=== PATIENT | female | born 1995 | race Caucasian/White ===

== ENCOUNTER 2018-04-15 07:00 | Inpatient (IN) | payer MEDICAID ==
[~2018-04-15 07:00] MED LIST: cefOXitin 2 GM Vial ONE
[2018-04-15] MEDS ORDERED: Glycopyrrolate 0.2 MG/ML 5 ML MDV ONE (07:04)
[2018-04-15] MEDS ORDERED: Propofol 200 MG/20 ML SDV ONE (07:04)
[2018-04-15] MEDS ORDERED: Succinylcholine 200 MG/10 ML MDV ONE (07:04)
[2018-04-15] MEDS ORDERED: fentaNYL 250 MCG/5 ML SDV ONE ×2 (07:04→10:34)
[2018-04-15] MEDS ORDERED: Ondansetron 4 MG/2 ML SDV ONE (07:04)
[2018-04-15] MEDS ORDERED: Neostigmine Methylsulfate 1 MG/ML 5 ML Syringe ONE (07:04)
[2018-04-15] MEDS ORDERED: Rocuronium 50 MG/5 ML Vial ONE ×2 (07:04→10:47)
[2018-04-15] MEDS ORDERED: Dexamethasone 4 MG/ML SDV ONE (07:04)
[2018-04-15] MEDS ORDERED: Lactated Ringers 1,000 ML ONE (07:07)
[2018-04-15] MEDS ORDERED: Gabapentin 300 MG Cap PO ONE (07:45)
[2018-04-15] MEDS ORDERED: Celecoxib 200 MG Cap PO ONE (07:45)
[2018-04-15] MEDS ORDERED: Acetaminophen 500 MG Tab PO ONE (07:45)
[2018-04-15] MEDS ORDERED: Scopolamine 1.5 MG Transdermal Patch TRDERM SCH (07:45)
[2018-04-15 08:01] LABS: HEMOGLOBIN A1C 6.1 % (4.5-6.2)
[2018-04-15] MEDS ORDERED: Dextrose 5%-Lactated Ringers 1,000 ML IV SCH ×2 (08:15→15:45)
[2018-04-15] MEDS ORDERED: cefOXitin 2 GM in Sodium Chloride 0.9% 50 ML IV ONE (09:15)
[2018-04-15] MEDS ORDERED: Lidocaine 0.4%/D5W 2 GM/500 ML BAG IV SCH ×2 (09:30→15:45)
[2018-04-15] MEDS ORDERED: Ropivacaine 60 ML, Dexamethasone 8 MG, EPINEPHrine 0.4 MG, Sodium Chloride 0.9% 17.6 ML NERVRT SCH ×4 (09:30)
[2018-04-15] MEDS ORDERED: Lidocaine 2% 100 MG/5 ML Syringe IVPUSH SCH (09:30)
[2018-04-15] MEDS ORDERED: Ketamine 500 MG/5 ML MDV IV SCH (09:30)
[2018-04-15] MEDS ORDERED: Ketamine 50 MG in Sodium Chloride 0.9% 49.5 ML IV SCH (09:30)
[2018-04-15] MEDS ORDERED: Labetalol 20 MG/4 ML Syringe ONE (11:42)
[2018-04-15] MEDS ORDERED: hydrOXYzine HCl 100 MG/2 ML SDV IM ONE (12:43)
[2018-04-15] MEDS ORDERED: Insulin Lispro 100 Unit/ML 3 ML KwikPen SUBCUT PRN (15:44)
[2018-04-15] MEDS ORDERED: diphenhydrAMINE 50 MG/ML SDV IVPUSH PRN (15:44)
[2018-04-15] MEDS ORDERED: Metoclopramide 10 MG/2 ML SDV IVPUSH PRN (15:44)
[2018-04-15] MEDS ORDERED: 50% Dextrose in Water 50 ML Syringe IVPUSH PRN (15:44)
[2018-04-15] MEDS ORDERED: hydrOXYzine HCl 100 MG/2 ML SDV IM PRN (15:44)
[2018-04-15] MEDS ORDERED: Labetalol 20 MG/4 ML Syringe IVPUSH PRN (15:44)
[2018-04-15] MEDS ORDERED: Ondansetron 4 MG/2 ML SDV IVPUSH PRN (15:44)
[2018-04-15] MEDS ORDERED: Glucagon,Human Recombinant 1 MG Vial IM PRN (15:44)
[2018-04-15] MEDS ORDERED: HYDROmorphone 0.5 MG/0.5 ML Syringe IVPUSH PRN (15:50)
[2018-04-15] MEDS ORDERED: HYDROmorphone 1 MG/ML Syringe IV PRN (15:50)
[2018-04-15] MEDS ORDERED: Pantoprazole 40 MG Vial IVPUSH SCH (16:00)
[2018-04-15] MEDS ORDERED: MVI, Adult with Vitamin K 10 ML, Thiamine 100 MG, Chromium/Copper/Mang/Selen/Zn 1 ML in... IV SCH ×4 (16:00)
[2018-04-15] MEDS: cefOXitin 2 GM in Sodium Chloride 0.9% 50 ML IV SCH ×2 (16:23→21:04)
[2018-04-15] MEDS: Gabapentin 250 MG/5 ML Solution ML 470 ML Bottle PO SCH ×2 (16:23→21:03)
[2018-04-15] MEDS: Acetaminophen Soln 650 MG/20.3 ML UD Cup PO SCH ×2 (16:24→21:04)
[2018-04-15] MEDS: Heparin Sodium 5,000 Units/ML Vial SUBCUT SCH (17:54)
[2018-04-16] MEDS ORDERED: Iohexol 647 MG/ML 50 ML SDV PO SCH (02:30)
--- NOTE | 2018-04-16 02:58 | CRLCR ---
Indication: Becka-en-Y gastric bypass Technique: KUB 1 view Comparison: None Findings/Impression: : Oral contrast is seen within the gastric pouch and proximal duodenum on the initial film. On the 2nd film, there is a small amount of residual oral contrast in the region of the gastric pouch, adjacent to the left upper quadrant ESTRADA drain. It is difficult to determine if this represents small amount of extravasation versus small amount of retained oral contrast in the stomach. Consider CT for further evaluation if clinically indicated. IUD projects over the pelvis. Nonspecific bowel gas pattern. Dictated by Mindy Smith MD @ Apr 16 2018 2:54AM Signed by Dr. Mindy Smith @ Apr 16 2018 2:56AM
[2018-04-16] MEDS: Acetaminophen Soln 650 MG/20.3 ML UD Cup PO SCH ×4 (05:07→21:14)
[2018-04-16] MEDS: cefOXitin 2 GM in Sodium Chloride 0.9% 50 ML IV SCH ×3 (05:07→09:52)
[2018-04-16] MEDS: Heparin Sodium 5,000 Units/ML Vial SUBCUT SCH ×2 (05:07→17:52)
[2018-04-16] MEDS ORDERED: Ondansetron 4 MG Tab.DIS PO PRN (07:28)
[2018-04-16] MEDS ORDERED: Dextrose 5%-Lactated Ringers 1,000 ML IV SCH (07:30)
[2018-04-16] MEDS: Magnesium Sulfate/Water 2 GM in Premix Bag 1 BAG IV SCH ×3 (08:46→20:57)
[2018-04-16] MEDS: Gabapentin 250 MG/5 ML Solution ML 470 ML Bottle PO SCH ×3 (08:49→21:14)
[2018-04-16] MEDS: SCOPOLAMINE PATCH CHECK TOP SCH (08:50)
[2018-04-16] MEDS: Celecoxib 200 MG Cap PO SCH (08:52)
[2018-04-16] MEDS ORDERED: MVI, Adult with Vitamin K 10 ML, Thiamine 100 MG, Chromium/Copper/Mang/Selen/Zn 1 ML in... IV SCH ×4 (16:00)
[2018-04-16] MEDS ORDERED: Pantoprazole 40 MG Delayed-Release Granules 1 Packet PO SCH (16:00)
[2018-04-17] MEDS ORDERED: Iohexol 647 MG/ML 50 ML SDV PO STA (03:45)
[2018-04-17] MEDS ORDERED: Iopamidol 612 MG/ML 150 ML Bottle IV STA (03:46)
[2018-04-17] MEDS: Acetaminophen Soln 650 MG/20.3 ML UD Cup PO SCH (04:50)
--- NOTE | 2018-04-17 05:01 | CRLCT ---
INDICATION: Abnormal KUB after Becka-en-Y TECHNIQUE: CT abdomen and pelvis without contrast. COMPARISON: KUB April 16, 2018 FINDINGS: Lower chest: Trace left pleural effusion. Liver: Unremarkable. Spleen: The spleen measures 14.1 cm in length. Pancreas: Unremarkable. Gallbladder and bile ducts: Unremarkable. Adrenal glands: Unremarkable. Kidneys: Unremarkable. No kidney or ureteral stones and no hydronephrosis. GI tract: Status post gastric bypass procedure. A ESTRADA drain enters the left abdomen with the tip along the lateral aspect of the superior spleen. Small amount of postoperative fat stranding around the stomach. Small amount of oral contrast within the gastric pouch. There is also oral contrast material within the duodenum and colon to the level of the splenic flexure. No evidence for oral contrast extravasation. Vascular structures: Unremarkable. Lymph nodes: Unremarkable. Miscellaneous: Small amount of postoperative pneumoperitoneum. Pelvic Organs: IUD within the uterus. Bones: Unremarkable for age. IMPRESSION: Status post gastric bypass procedure. No evidence for oral contrast extravasation. Trace left pleural effusion. Mild splenomegaly. IUD within the uterus. Please note that all CT scans at this facility use dose modulation, iterative reconstruction, and/or weight-based dosing when appropriate to reduce radiation dose to as low as reasonably achievable. Dictated by Mindy Smith MD @ Apr 17 2018 4:55AM Signed by Dr. Mindy Smith @ Apr 17 2018 5:01AM
[2018-04-17] MEDS: Heparin Sodium 5,000 Units/ML Vial SUBCUT SCH (05:11)
--- NOTE | 2018-04-17 07:45 | DISCH ---
ADMISSION DIAGNOSIS: Morbid obesity, BMI 46. DISCHARGE DIAGNOSES: Laparoscopic Becka-en-Y gastric bypass surgery, liver biopsy, repair of paraesophageal diaphragmatic hernia, and partial gastrectomy for morbid obesity, hepatomegaly, diaphragmatic hernia, focal area of devascularization of the stomach, and SP formation of gastric pouch. Date of surgery: 04/16/2018. Surgeon: Aroldo Ledesma MD. HISTORY: Imelda Olson is a 22-year-old female with longstanding history of morbid obesity and increasing comorbidities. After preoperative evaluation and discussion of possible risks and possible complications, she wished to proceed with surgical procedure. HOSPITAL COURSE: Imelda had her surgery on 04/15/2018. She had no operative complications. On postoperative day #1, she had an upper GI and it showed possible extravasation of contrast. The patient exhibited no signs or symptoms of a possible leak. A CT scan was obtained on 04/17/2018 was completely normal. On postoperative day #1, lidocaine was discontinued after 24 hours. She was started on a step-2 gastric bypass diet without cereal. IV was decreased to 100 mL per hour. Pain was controlled. Activity was good. She received dietary instruction. On postoperative day #2, she was able to be discharged to home. She did have a bowel movement. Oral intake was 1000. Urine output was 2600. ESTRADA drain put out 90 before it was discontinued and she received a vitamin B12 1000 mcg IM injection. OBJECTIVE: GENERAL: Imelda Olson is a 22-year-old female. VITAL SIGNS: Height is 5 feet 5.75 inches. Weight is 280 pounds. TPR 98.2, 99, 16, blood pressure 149/88, it had been running 123 to 135 over 74 to 83. HEENT: Negative. NECK: Supple. HEART: Regular rate and rhythm. LUNGS: Clear. ABDOMEN: 4 x 4 over ESTRADA drain site. Sutures intact. Abdominal binder is on. EXTREMITIES: Without peripheral edema. DISPOSITION: Discharged to home. CONDITION: Stable and improving. FOLLOWUP APPOINTMENT: Rhonda Verdugo PA-C, on 04/26/2018 at 10:15 a.m. NEW PRESCRIPTIONS: Zofran ODT 4 mg q.4 h. p.r.n. nausea, #30; Tylenol 650 mg oral q.6 h. for pain; Celebrex, she has at home 200 mg, she is to take one daily for 14 days starting tomorrow; she has Mirena IUD, this is to remain in for 18 months. DIET: Step 2 gastric bypass diet with no cereal for 2 weeks. ACTIVITY: No lifting over 10 pounds for 2 weeks. Walk at least 6 times daily inside your home. Driving: Do not drive for 1 week. Shower/bathing, may shower. DISCHARGE INSTRUCTIONS: Notify provider if any fever, increased pain, nausea, or vomiting. Keep site clean and dry. Wear abdominal binder for 2 weeks and then as tolerated. SPECIAL INSTRUCTIONS: Use incentive spirometer 10 times every hour while awake for 1 week and keep track of water and protein shakes.
--- NOTE | 2018-04-17 07:57 | PN ---
DATE OF SERVICE: 04/16/2018 SUBJECTIVE: Imelda is postop day #1 following a Becka-en-Y gastric bypass surgery. Pain is controlled. Lidocaine has been running without difficulty. She has been up, ambulating, tolerating a step 1 diet. Upper GI was done. Radiologist said it was difficult to determine if there was an extravasation versus small amount of retained oral contrast in stomach and recommended a CT. Her vital signs were stable. She is nontender. Tolerating oral diet without difficulty. Abdomen not abnormally tender. REVIEW OF SYSTEMS: Remainder of review of systems negative for any pertinent positives and negatives. OBJECTIVE: GENERAL: Imelda is a pleasant 22-year-old female. She is alert and orientated. VITAL SIGNS: TPR is 97, 89, 16, blood pressure 130/72, O2 by pulse oximetry is 96%. HEENT: Negative. NECK: Supple. HEART: Regular rate and rhythm. LUNGS: Clear. ABDOMEN: Dressings dry and intact. ESTRADA drain has had a light pink drainage, put out 135 mL. Abdominal binder has been on. EXTREMITIES: Without peripheral edema. ASSESSMENT: Laparoscopic Becka-en-Y gastric bypass surgery, liver biopsy, repair of diaphragmatic hernia, and partial gastrectomy for morbid obesity, hepatomegaly, diaphragmatic hernia, focal devascularization area of the stomach, SP formation of the gastric pouch. PLAN: 1. Step 2 gastric bypass diet without cereal. 2. Decrease IV to 100 mL per hour. 3. Zofran ODT 4 mg sublingual every 4 hours p.r.n. nausea. 4. Communication order: Three med cups per hour, record at bedside. 5. Use incentive spirometer 10 times every hour while awake. 6. Dressing off, may shower. 7. We will evaluate p.r.n. or in a.m. Rhonda Verdugo PA-C /[id number]
[2018-04-17] MEDS: Celecoxib 200 MG Cap PO SCH (08:41)
[2018-04-17] MEDS: SCOPOLAMINE PATCH CHECK TOP SCH (08:42)
[2018-04-17] MEDS: Gabapentin 250 MG/5 ML Solution ML 470 ML Bottle PO SCH (08:44)
[2018-04-17] MEDS ORDERED: Cyanocobalamin (Vitamin B12) 1,000 MCG/ML SDV IM ONE (09:00)
--- NOTE | 2018-04-19 11:57 | OR ---
DATE OF PROCEDURE: 04/15/2018 PREOPERATIVE DIAGNOSIS: Morbid obesity. POSTOPERATIVE DIAGNOSES: 1. Morbid obesity. 2. Marked hepatomegaly. 3. Paraesophageal diaphragmatic hernia. 4. Focal area of gastric ischemia, status post pouch formation. PROCEDURES: 1. Laparoscopic Becka-en-Y gastric bypass with long limb gastroenterostomy (53601). 2. Garcia-Cut needle liver biopsy (95175). 3. Repair of paraesophageal diaphragmatic hernia (97070). 4. Partial gastrectomy (63356). ANESTHESIA: General. SURGEON: Aroldo Ledesma MD ASSISTANTS: Rhonda Verdugo PA-C and KALIE Arizmendi. INDICATIONS FOR PROCEDURE: This is a 22-year-old female presenting with longstanding morbid obesity and increasingly significant comorbidities. After preoperative evaluation and discussion, she wished to proceed with a gastric bypass procedure. Potential risks including bleeding, infection, leaks from various GI tract closures, problems with bowel obstruction over time, as well as possibility of cardiopulmonary, septic, or hemorrhagic complications leading to were discussed, and the patient wishes to proceed. DETAILS OF PROCEDURE: The patient was taken to the operating room and placed in a supine position. After general endotracheal anesthesia was induced, she was converted to a lithotomy position. An orogastric tube placed and the abdomen prepped and draped. At 15 cm inferior and 5 cm left of xiphoid process, a transverse incision was made and peritoneal cavity entered under direct vision with an Optiview trocar inflated to 15 mmHg pressure with CO2. The laparoscope was then reinserted. No underlying trocar insertion site injuries were seen. Following this, 5 additional trocars were placed across the upper mid abdomen and general exploration was undertaken. The patient was noted to have marked hepatomegaly, and Garcia-Cut needle biopsy was obtained from left lobe of the liver. Minimal bleeding from the biopsy sites was controlled with electrocautery. At this point, bilateral subcostal transversus abdominis plane blocks were then also placed. The omentum was then divided in the midline up to the level of the transverse colon. This allowed identification of the small bowel to the ligament of Treitz. Small bowel was then traced out 200 cm distal to that point, where it was divided transversely with a DAMIAN stapler. Small bowel was then traced out an additional 200 cm where the [id number] enteroenterostomy was accomplished with an internal firing of the Endo-DAMIAN 60 mm stapler. Common opening was then closed transversely with the same stapler, angles anastomosed, and mesenteric defect approximated with some 0 Ethibond stitch, along with fibrin sealant. The divided end of the Becka limb was then from the mesentery for a few centimeters, which allowed an antecolic position of the Becka limb up to the level of the gastroesophageal junction without tension. The liver was then retracted anteriorly. The patient was noted to have a moderate paraesophageal diaphragmatic hernia with prolapse of some perigastric fat and a portion of gastric fundus in a plane anterior to the course of the esophagus. This was reduced, and the peritoneum overlying the hernia was divided and reflected downward. An anterior repair of the diaphragmatic hernia was then accomplished with 0 Ethibond sutures reinforced with PTFE pledgets. Gastrointestinal balloon catheter was then inflated to 15 mL and pulled up snugly against the EG junction. Gastric wall over the apex balloon was then marked with electrocautery. The balloon catheter was deflated and withdrawn. The lesser omental tissue adjacent to the gastric cardia was incised, allowing dissection behind the stomach at that level. Pouch formation was initiated with a transverse firing of the DAMIAN stapler at the level of the cauterized leatha, and 2 additional firings of the DAMIAN stapler were then used to complete the pouch, these being directed up toward the angle of His. Upon completion of the pouch, both staple lines were noted to be intact. The anvil of a 25 mm EEA stapler was attached to a [place] sump type tube. The latter was brought down through the mouth and taken out through a small opening in the gastric pouch, allowing the anvil likewise to be pulled down to within the gastric pouch. Divided end of the Becka limb was then opened, and the main body of the EEA stapler was brought several centimeters into the Becka limb, brought up the anvil and united with it, thus creating gastrojejunostomy. Upon removal of the stapler, double donuts of mucosa were noted within it. The small bowel was closed off with a vascular staple line. The gastrojejunostomy was reinforced with some 3-0 Vicryl seromuscular stitch, along with fibrin sealant. A leak test was accomplished with injection of 120 mL of air in the gastric pouch while submerged with a cefoxitin-containing saline solution. One additional finding was that, prior to formation of the gastrojejunostomy, the end of the gastric pouch was noted to be somewhat ischemic in appearance, and this was excised with initial firing of the DAMIAN stapler and that small stomach specimen sent for pathologic exam. At this point, no further problems were noted. A single Jono-Lan drain was taken out through the left lateral trocar site and positioned adjacent to the gastrojejunostomy. The trocars were then sequentially removed, the peritoneal cavity deflated, incisions were closed with some 4-0 Vicryl skin stitch, and drains fixed with 4-0 Vicryl stitch as well. The patient was taken to the recovery room in satisfactory condition. Physician certified pharmacist assistant, Rhonda Verdugo, played an essential role in assisting in this case, helping to position the patient, retract structures as needed, as well as suturing and cutting sutures when indicated. Her presence improved patient safety and decreased the operative time. Aroldo Ledesma MD /[id number]
== END 2018-04-17 09:03 | disposition home or self-care (01) | DRG 620 ==
LOC: JP.SDSSCHI 07:00 → JP.SDS 07:01 → EDSTATUS 07:30 → JP.2SS 12:10 → JP.MS 04-16 13:35
PROVIDERS: ADMIT Surgery; ATTEND Surgery
PROC: 0D164ZA Bypass Stomach to Jejunum, Percutaneous Endoscopic Approach (ICD-10-PCS; principal; 2018-04-15)
PROC: 0FB24ZX Excision of Left Lobe Liver, Percutaneous Endoscopic Approach, Diagnostic (ICD-10-PCS; 2018-04-15)
PROC: 0BQT4ZZ Repair Diaphragm, Percutaneous Endoscopic Approach (ICD-10-PCS; 2018-04-15)
PROC: 0DB64ZX Excision of Stomach, Percutaneous Endoscopic Approach, Diagnostic (ICD-10-PCS; 2018-04-15)
DX: E66.01 Morbid (severe) obesity due to excess calories (principal); K55.9 Vascular disorder of intestine, unspecified; Z68.42 Body mass index [BMI] 45.0-49.9, adult; R16.0 Hepatomegaly, not elsewhere classified; K44.9 Diaphragmatic hernia without obstruction or gangrene; E28.2 Polycystic ovarian syndrome; M51.16 Intervertebral disc disorders with radiculopathy, lumbar region; H52.203 Unspecified astigmatism, bilateral; Z97.5 Presence of (intrauterine) contraceptive device
CPT/HCPCS: 36415; 74177; 74240; 80048; 80053; 82962; 83036; 83735; 83880; 84100; 85025; 85027; 86850; 86900; 86901; 94762; A9270-GY; C9113; J0171; J0330; J0694; J1100; J1644; J1815; J2001; J2405; J2704; J2710; J2795; J3010; J3410; J3411; J3420; J3475; J3490; J7030; J7042; J7050; J7120; Q9967

== ENCOUNTER 2020-04-09 13:18 | Inpatient (IN) | payer MEDICAID ==
[2020-04-09] MEDS ORDERED: Oxytocin 10 Units/1 ML SDV ONE ×2 (15:03→16:16)
--- NOTE | 2020-04-09 15:27 | US ---
OB Ltd 1 or More Fetus, OB Transvaginal CLINICAL HISTORY: Vaginal bleeding, 37 week 3 day gestation FINDINGS: There is a single viable intrauterine in cephalic presentation. There is spontaneous motion. heart rate is 1 61 bpm. The placenta is anterior fundal. It is grade 3. The cervix measures 2.1 cm in length and is closed and with fundal pressure. Amniotic fluid index is 13.9 cm. IMPRESSION: Single viable intrauterine with an anterior fundal placenta. It is free of the cervical os and shows no evidence of hemorrhage Cervical length is 2.1 cm. It is closed
[2020-04-09] MEDS ORDERED: Sodium Chloride 0.9% 10 ML Syringe FLUSH PRN (15:35)
--- NOTE | 2020-04-09 15:59 | PCM.LDHP ---
L&D History of Present Illness - General Date of Service: 04/09/20 (vaginal bleeding) Admit Problem/Dx: Admission Diagnosis/Problem Admission Diagnosis/Problem Source of Information: Patient History Limitations: Reports: No Limitations - History of Present Illness Introduction:: This 24 year old who is 37 3/7 weeks gestation presented this morning with vaginal bleeding. She had had several episodes at home where there was bright red blood on her pad and in the toilet. She went home this morning and returned later this afternoon with more bleeding. She is finesse ans is a RCS in one week. Ultrasound shows very mature grade 3 placenta. cervix exam 1-/0. Cat one strip Labs: GBS negative Covid negative HGB 11.7 PLT 200 HIV negative Timing/Duration: Reports: minutes: (2-3) Quality: Reports: Dull, Pressure Severity: Mild Improves with: Reports: None Worsens with: Reports: None - Related Data Allergies/Adverse Reactions: Allergies Allergy/AdvReac Type Severity Reaction Status Date / Time amoxicillin Allergy Edema Verified 04/09/20 14:30 Home Medications: Home Meds Mv-Mn/Iron/FA/Herbal/Digestive [ One Tablet] 1 tab PO DAILY 01/07/20 [History] Acetaminophen [Tylenol Extra Strength] 1,000 mg PO Q6H PRN 03/02/20 [History] Calcium Carb/Vitamin D3/Vit K1 [Calcium + D Soft Chewable Tab] 1 each PO DAILY 04/09/20 [History] Cyanocobalamin (Vitamin B-12) [Vitamin B-12] 1 tab PO DAILY 04/09/20 [History] Iron 18 mg PO DAILY 04/09/20 [History] Magnesium 250 mg PO DAILY 04/09/20 [History] Vitamin B Complex 1 each PO DAILY 04/09/20 [History] Past Medical History Genitourinary History: Reports: None LOTTERY MANAGER History: Reports: None, LMP (Approximate): (KARLA 04/27/20) Musculoskeletal History: Reports: Back Pain, Chronic, Other (See Below) Other Musculoskeletal History: bulging disc L4-L5 Endocrine/Metabolic History: Reports: Obesity/BMI 30+ - Infectious Disease History Infectious Disease History: Reports: Chicken Pox - Past Surgical History GI Surgical History: Reports: Bariatric Procedure Social & Family History - Family History Family Medical History: No Pertinent Family History - Caffeine Use Caffeine Use: Reports: None H&P Review of Systems - Review of Systems: Review Of Systems: See Below General: Reports: No Symptoms HEENT: Reports: No Symptoms Pulmonary: Reports: No Symptoms Cardiovascular: Reports: No Symptoms Gastrointestinal: Reports: No Symptoms Genitourinary: Reports: No Symptoms Musculoskeletal: Reports: No Symptoms Skin: Reports: No Symptoms Psychiatric: Reports: No Symptoms Neurological: Reports: No Symptoms Hematologic/Lymphatic: Reports: No Symptoms Immunologic: Reports: No Symptoms L&D Exam - Exam Exam: See Below - Vital Signs Vital Signs: Last Vital Signs Temp 97.4 F 04/09/20 13:30 Pulse 81 04/09/20 13:30 Resp 18 04/09/20 13:30 BP 106/65 04/09/20 13:30 Pulse Ox 99 04/09/20 13:30 Weight: 179 lb - OB Specific Contraction Duration (sec): 40-50 Contraction Frequency (min): x2 Contraction Intensity: Mild Movement: Active Heart Tones: Present Heart Tones per Min: 165 Heart Rate (FHR) Variability: Moderate (6-25 bmp) Presentation: Vertex Estimated Weight: 8-9 - Ac Score Ac Score Cervix Position: Anterior Ac Score Consistency: Soft Ac Score Effacement: 51-70% Ac Score Dilation: 1-2 cm Ac Score 's Station: -1 ,0 Ac Score Total: 9 - Exam General: Alert, Oriented HEENT: PERRLA, Conjunctiva Clear Neck: Supple Lungs: Normal Respiratory Effort Cardiovascular: Regular Rate, Regular Rhythm GI/Abdominal Exam: Soft, Other (URQ pain from gallstones) Genitourinary: Normal external exam, Cervical dilitation, Enlarged uterus, Vaginal bleeding Back Exam: Normal Inspection Extremities: No Pedal Edema, Normal Capillary Refill Skin: Warm Neurological: Reflexes Equal Bilateral Psychiatric: Alert, Normal Affect, Normal Mood - Patient Data Lab Results Last 24 hrs: Laboratory Results - last 24 hr 04/09/20 04/09/20 04/09/20 Range/Units 14:00 14:12 14:13 WBC 8.7 (4.5-11.0) K/uL RBC 3.74 (3.30-5.50) M/uL Hgb 11.7 L (12.0-15.0) g/dL Hct 35.0 L (36.0-48.0) % MCV 94 (80-98) fL MCH 31 (27-31) pg MCHC 33 (32-36) % Plt Count 200 (150-400) K/uL Neut % (Auto) 70 H (36-66) % Lymph % (Auto) 21 L (24-44) % [place] % (Auto) 8 H (2-6) % Eos % (Auto) 1 L (2-4) % Baso % (Auto) 0 (0-1) % Urine Opiates Screen Negative (NEGATIVE) Ur Oxycodone Screen Negative (NEGATIVE) Urine Methadone Screen Negative (NEGATIVE) Ur Propoxyphene Screen Negative (NEGATIVE) Ur Barbiturates Screen Negative (NEGATIVE) Ur Tricyclics Screen Negative (NEGATIVE) Ur Phencyclidine Scrn Negative (NEGATIVE) Ur Amphetamine Screen Negative (NEGATIVE) U Methamphetamines Scrn Negative (NEGATIVE) Urine MDMA Screen Negative (NEGATIVE) U Benzodiazepines Scrn Negative (NEGATIVE) U Cocaine Metab Screen Negative (NEGATIVE) U Marijuana (THC) Screen Negative (NEGATIVE) SARS CoV-2 RNA Rapid LONNIE Negative Result Diagrams: 04/09/20 14:13 - Problem List (1) Vaginal bleeding, abnormal SNOMED Code(s): 762088941 ICD Code: N93.9 - ABNORMAL UTERINE AND VAGINAL BLEEDING, UNSPECIFIED Status: Acute Current Visit: Yes (2) Previous section SNOMED Code(s): 002043609 ICD Code: Z98.891 - HISTORY OF UTERINE SCAR FROM PREVIOUS SURGERY Status: Acute Current Visit: Yes (3) affected by previous bariatric surgery, currently in third trimester SNOMED Code(s): 379334999189237, [id number], 714181691, [id number] ICD Code: O99.843 - BARIATRIC SURGERY STATUS COMP , THIRD TRIMESTER Status: Acute Current Visit: Yes (4) with third trimester bleeding, antepartum SNOMED Code(s): 506069539 ICD Code: O46.93 - ANTEPARTUM HEMORRHAGE, UNSPECIFIED, THIRD TRIMESTER Status: Acute Current Visit: Yes Problem List Initiated/Reviewed/Updated: Yes Orders Last 24hrs: Active Orders 24 hr Category Date Time Status Insert Yung Catheter [Insert Urinary Catheter] [OM.PC] Care 04/09/20 15:45 Ordered Q24H Peripheral IV Care [RC] . DIRECTED Care 04/09/20 15:36 Active Urinary Catheter Assessment [RC] ASDIRECTED Care 04/09/20 15:36 Active OB Transvaginal [US] Routine Exams 04/09/20 Taken RED BLOOD CELLS LP [BBK] Stat Lab 04/09/20 14:13 Received TYPE AND SCREEN [BBK] Stat Lab 04/09/20 14:13 Received Sodium Chloride 0.9% [Saline Flush] Med 04/09/20 15:35 Active 10 ml FLUSH ASDIRECTED PRN Peripheral IV Insertion Adult [OM.PC] Routine Oth 04/09/20 15:35 Ordered Transfuse Red Blood Cells [COMM] Routine Oth 04/09/20 13:54 Ordered Medication Orders Sodium Chloride (Saline Flush) 10 ml FLUSH ASDIRECTED PRN PRN Reason: Keep Vein Open Assessment/Plan Comment:: 24 year old repeat c section now 37 3/7 weeks gestation with vaginal bleeding since yesterday. Finesse and has cervical change since I checked her last week. Baby is engaged. This is bright red blood unknown source. Baby is moving and strip is reactive. The placenta looks to be a grade three. I'm worried there is more then we can see Plan Proceed with repeat c section this afternoon She plans on GBS negative Covid negative HIV negative
[2020-04-09] MEDS ORDERED: ePHEDrine 50 MG/ML SDV ONE (16:14)
[2020-04-09] MEDS ORDERED: cefOXitin 2 GM Vial ONE (16:14)
[2020-04-09] MEDS ORDERED: Lactated Ringers 1,000 ML IV ONE (16:22)
[2020-04-09] MEDS ORDERED: Phenylephrine 1% 10 MG/ML SDV ONE (16:48)
[2020-04-09] MEDS ORDERED: Ondansetron 4 MG Tab.DIS PO PRN (17:38)
[2020-04-09] MEDS ORDERED: Naloxone 0.4 MG/ML SDV IVPUSH PRN (17:38)
[2020-04-09] MEDS ORDERED: Lanolin 100% Cream 40 GM Tube TOP ONE (17:38)
[2020-04-09] MEDS ORDERED: Witch Hazel Medicated Pads 100/Jar TOP ONE (17:38)
[2020-04-09] MEDS ORDERED: ePHEDrine 50 MG/ML SDV IVPUSH PRN (17:38)
[2020-04-09] MEDS ORDERED: diphenhydrAMINE 50 MG/ML SDV IVPUSH PRN (17:38)
[2020-04-09] MEDS ORDERED: Bisacodyl 10 MG Supp RECTAL PRN (17:38)
[2020-04-09] MEDS ORDERED: Benzocaine 20% Top Spray 56 GM Bottle TOP ONE (17:38)
[2020-04-09] MEDS ORDERED: Simethicone 80 MG Tab.Chew PO PRN (17:38)
[2020-04-09] MEDS ORDERED: Acetaminophen/HYDROcodone 325-5 MG Tab PO PRN (17:38)
[2020-04-09] MEDS: Ibuprofen 800 MG Tab PO PRN (19:03)
[2020-04-10] MEDS: Ibuprofen 800 MG Tab PO PRN ×3 (04:31→22:35)
[2020-04-10] MEDS: Prenatal Multivitamin with Calcium/Folic Acid/Iron Tab PO SCH (08:00)
--- NOTE | 2020-04-10 08:21 | PN ---
DATE OF SERVICE: 04/10/2020 SUBJECTIVE: The patient is doing well. Pain is well controlled. No nausea, vomiting, shortness of breath, or chest pain. OBJECTIVE: VITAL SIGNS: Stable. CARDIOVASCULAR: Regular rhythm and rate. RESPIRATORY: Lungs are clear to auscultation bilaterally. SKIN: Incision is healing well. ASSESSMENT: Status post . PLAN: Continue to advance diet, p.o. pain medications. The patient is doing very well, anticipate discharge in the next 24 hours. Azar Costa MD /[id number]
--- NOTE | 2020-04-10 10:26 | OR ---
DATE OF PROCEDURE: 04/09/2020 SURGEON: Azar Costa MD PROCEDURE: section. C WPF DEVELOPER: Niurka Franco CNM. COMPLICATIONS: None. RISKS: Risks, benefits, alternatives, and limitations including, but not limited to infection, bleeding, injury to baby, bowel, bladder, chronic wounds, chronic pain, and other risks not listed here were explained to the patient who wished to proceed. PROCEDURE IN DETAIL: The previous Pfannenstiel incision was reopened. This was then carried down with electrocautery to and through the external obliques. Milo clamps were used to elevate the fascia and this was elevated in superior and inferior fashion. Midline rectus sheath was opened with the Metzenbaum scissors. This was then opened using muscle- sparing technique. The bladder was identified and deflected off the uterus itself. The uterus was opened bluntly using Metzenbaum scissors. This was then enlarged bilaterally. The baby was delivered without difficulty. Pitocin was then given. The placenta was delivered. The uterus inspected for any retained materials, none was noted. The uterus was then closed with 3 layers of #1 Vicryl suture in a running locked fashion. The rectus muscles were reapproximated using #1 Vicryl suture and the fascia was closed using #1 Vicryl suture. The remaining layers and all the other layers were irrigated with normal saline. The subcutaneous tissues were approximated with 3-0 Vicryl and the skin was closed with 4-0 Vicryl. The patient tolerated the procedure well. Azar Costa MD /[id number]
[2020-04-10] MEDS: Acetaminophen 500 MG Tab PO PRN ×2 (12:09→18:04)
[2020-04-11] MEDS: Acetaminophen 500 MG Tab PO PRN (04:36)
[2020-04-11] MEDS: Prenatal Multivitamin with Calcium/Folic Acid/Iron Tab PO SCH (08:34)
[2020-04-11] MEDS: Ibuprofen 800 MG Tab PO PRN (08:36)
== END 2020-04-11 13:30 | disposition home or self-care (01) | DRG 788 ==
LOC: JP.OBCHECK 13:18 → JP.OB 15:39 → OBSVTOIN 16:56 → JP.MS 16:57
PROVIDERS: ADMIT Nurse Practitioner Family; ATTEND Nurse Practitioner Family
PROC: 10D00Z1 Extraction of Products of Conception, Low, Open Approach (ICD-10-PCS; principal; 2020-04-09)
DX: O34.211 Maternal care for low transverse scar from previous cesarean delivery (principal); Z37.0 Single live birth; O46.93 Antepartum hemorrhage, unspecified, third trimester; O99.843 Bariatric surgery status complicating pregnancy, third trimester; Z20.822 Contact with and (suspected) exposure to COVID-19; Z3A.37 37 weeks gestation of pregnancy
CPT/HCPCS: 36415; 51702; 59409; 76815; 76815-26; 76817; 76817-26; 80048; 80305-QW; 85025; 86850; 86900; 86901; 86920; 86922; 88307; 99211; A9270-GY; J0694; J2370; J2590; J7120; U0002

== ENCOUNTER 2020-05-01 05:12 | Day surgery (SDC) | payer MEDICAID ==
[2020-05-01] MEDS ORDERED: Acetaminophen 500 MG Tab PO ONE (06:00)
[2020-05-01] MEDS: Dextrose 5%-Lactated Ringers 1,000 ML IV SCH ×2 (06:30→11:40)
[2020-05-01] MEDS ORDERED: Bupivacaine 0.5% 50 ML MDV ONE (06:46)
[2020-05-01] MEDS ORDERED: Lidocaine 1% with EPINEPHrine 1:100,000 50 ML MDV ONE (06:46)
[2020-05-01] MEDS ORDERED: fentaNYL 250 MCG/5 ML SDV ONE (07:12)
[2020-05-01] MEDS ORDERED: Propofol 200 MG/20 ML SDV ONE (07:13)
[2020-05-01] MEDS ORDERED: Dexamethasone 4 MG/ML SDV ONE (07:13)
[2020-05-01] MEDS ORDERED: Rocuronium 50 MG/5 ML Vial ONE (07:13)
[2020-05-01] MEDS ORDERED: Neostigmine Methylsulfate 1 MG/ML 5 ML Syringe ONE (07:13)
[2020-05-01] MEDS ORDERED: Ondansetron 4 MG/2 ML SDV ONE (07:13)
[2020-05-01] MEDS ORDERED: Succinylcholine 200 MG/10 ML MDV ONE (07:13)
[2020-05-01] MEDS ORDERED: Glycopyrrolate 0.2 MG/ML 5 ML MDV ONE (07:13)
[2020-05-01] MEDS ORDERED: Ketamine 500 MG/5 ML MDV IV SCH (07:30)
[2020-05-01] MEDS ORDERED: Ketamine 50 MG in Sodium Chloride 0.9% 49.5 ML IV SCH (07:30)
[2020-05-01] MEDS ORDERED: cefOXitin 2 GM in Sodium Chloride 0.9% 50 ML IV ONE (07:30)
[2020-05-01] MEDS ORDERED: hydrOXYzine HCL 100 MG/2 ML SDV IM ONE (08:33)
[2020-05-01] MEDS ORDERED: Acetaminophen/HYDROcodone 325-5 MG Tab PO PRN (10:00)
[2020-05-01] MEDS ORDERED: HYDROmorphone 0.5 MG/0.5 ML Syringe IVPUSH PRN (10:00)
[2020-05-01] MEDS ORDERED: HYDROmorphone 1 MG/ML Syringe IV PRN (10:00)
[2020-05-01] MEDS ORDERED: Ondansetron 4 MG/2 ML SDV IVPUSH PRN (10:00)
[2020-05-01] MEDS ORDERED: Pantoprazole 40 MG Vial IVPUSH SCH (11:00)
[2020-05-01] MEDS ORDERED: cefOXitin 2 GM in Sodium Chloride 0.9% 50 ML IV SCH (12:30)
--- NOTE | 2020-05-01 17:13 | PCM.DCSUM1 ---
Discharge Summary - Hospital Course Free Text/Narrative:: Imelda had a laparoscopic cholecystectomy earlier today and would like to be discharged to home. Vital signs are stable, oral intake and urine output adequate. Pain is controlled. - Discharge Data Discharge Date: 05/01/20 Discharge Disposition: Home, Self-Care 01 Condition: Good - Referral to Home Health Primary Care Physician: PCP None - Patient Summary/Data Consults: Consultations 05/01/20 09:32 Respiratory Care Assess and Treatment [CONS] Routine Comment: Physician Instructions: Post-Op Pneumonia Prevention - Patient Instructions Diet: Usual Diet as Tolerated, Drink 8-10+ Glasses/Day Activity: No Lifting Over 10 Pounds (for 2 weeks ) Activity, Other: Walk at least 6 times daily inside your home. Driving: Do Not Drive (for 1 week and within 6 - 8 hours of taking a narcotic pain medication) Showering/Bathing: May Shower Wound/Incision Care: Keep Operative Site/Wound Site Clean and Dry Notify Provider of: Fever, Increased Pain, Swelling and Redness, Drainage, Nausea and/or Vomiting Other/Special Instructions: Use incentive inspirometer 10 times every hour while awake for 1 week. - Discharge Plan Prescriptions/Med Rec: Acetaminophen/HYDROcodone [[place] 325-5 MG] 1 tab PO Q6H PRN #28 tablet PRN Reason: PAIN Home Medications: Home Meds Calcium Carb/Vitamin D3/Vit K1 [Calcium + D Soft Chewable Tab] 1 each PO DAILY 04/09/20 [History] Cyanocobalamin (Vitamin B-12) [Vitamin B-12] 1 tab PO DAILY 04/09/20 [History] Iron 18 mg PO DAILY 04/09/20 [History] Magnesium 250 mg PO DAILY 04/09/20 [History] Vitamin B Complex 1 each PO DAILY 04/09/20 [History] Calcium Citrate/Vitamin D3 [Calcium Citrate - Vit D Tablet] 1 tab PO DAILY 04/27/20 [History] EPINEPHrine [Epipen] 0.3 mg IM ASDIRECTED PRN 04/27/20 [History] Acetaminophen/HYDROcodone [[place] 325-5 MG] 1 tab PO Q6H PRN #28 tablet 05/01/20 [Rx] Referrals: Rhonda Verdugo PA-C [Physician Fire Protection Inspector] - 05/11/20 10:00 am - Discharge Summary/Plan Comment DC Time >30 min.: No - General Info Date of Service: 05/01/20 Functional Status: Reports: Pain Controlled, Tolerating Diet, Ambulating, Urinating - Review of Systems General: Reports: No Symptoms HEENT: Reports: No Symptoms Pulmonary: Reports: No Symptoms Cardiovascular: Reports: No Symptoms Gastrointestinal: Reports: No Symptoms Genitourinary: Reports: No Symptoms Musculoskeletal: Reports: No Symptoms Skin: Reports: No Symptoms Neurological: Reports: No Symptoms Psychiatric: Reports: No Symptoms - Patient Data Vitals - Most Recent: Last Vital Signs Temp 97.9 F 05/01/20 10:00 Pulse 56 L 05/01/20 12:00 Resp 16 05/01/20 12:00 BP 96/47 L 05/01/20 12:00 Pulse Ox 97 05/01/20 12:00 I&O - Last 24 hours: Intake & Output 05/01/20 05/01/20 05/01/20 06:59 14:59 22:59 Intake Total 100 Output Total 200 Balance 100 -200 Lab Results - Last 24 hrs: Laboratory Results - last 24 hr 05/01/20 05/01/20 05/01/20 Range/Units 05:45 05:45 05:45 WBC 6.5 (4.5-11.0) K/uL RBC 4.41 (3.30-5.50) M/uL Hgb 13.5 D (12.0-15.0) g/dL Hct 41.6 (36.0-48.0) % MCV 94 (80-98) fL MCH 31 (27-31) pg MCHC 33 (32-36) % Plt Count 242 (150-400) K/uL Neut % (Auto) 58 (36-66) % Lymph % (Auto) 31 (24-44) % [place] % (Auto) 8 H (2-6) % Eos % (Auto) 3 (2-4) % Baso % (Auto) 1 (0-1) % Sodium 147 (140-148) mmol/L Potassium 3.7 (3.6-5.2) mmol/L Chloride 108 (100-108) mmol/L Carbon Dioxide 29 (21-32) mmol/L Anion Gap 9.9 (5.0-14.0) mmol/L BUN 7 (7-18) mg/dL Creatinine 0.7 (0.6-1.0) mg/dL Est Cr Clr Drug Dosing TNP Estimated GFR (MDRD) > 60 (>60) Glucose 79 (74-106) mg/dL Calcium 9.1 (8.5-10.1) mg/dL Total Bilirubin 1.2 H (0.2-1.0) mg/dL AST 14 L (15-37) U/L ALT 26 (12-78) U/L Alkaline Phosphatase 148 H (46-116) U/L Total Protein 6.9 (6.4-8.2) g/dL Albumin 3.5 (3.4-5.0) g/dL Globulin 3.4 (2.3-3.5) g/dL Albumin/Globulin Ratio 1.0 L (1.2-2.2) Urine HCG, Qual Negative Med Orders - Current: Current Medications Hydrocodone Bitart/Acetaminophen (Acetaminophen/Hydrocodone 325-5 Mg Tab) 1 - 2 tab PO Q4H PRN PRN Reason: PAIN Hydromorphone HCl (Hydromorphone 0.5 Mg/0.5 Ml Syringe) 0.5 mg IVPUSH Q2H PRN PRN Reason: MODERATE PAIN Last Admin: 05/01/20 12:59 Dose: 0.5 mg Documented by: Hydromorphone HCl (Hydromorphone 1 Mg/Ml Syringe) 1 mg IV Q2H PRN PRN Reason: SEVERE PAIN Dextrose/Lactated Ringer's (Dextrose 5%-Lactated Ringers) 1,000 mls @ 100 mls/hr IV ASDIRECTED [facility] Last Admin: 05/01/20 11:40 Dose: 100 mls/hr Documented by: Cefoxitin Sodium 2 gm/ Sodium (Chloride) 50 mls @ 100 mls/hr IV Q6H [facility] Last Admin: 05/01/20 11:39 Dose: 100 mls/hr Documented by: Ondansetron HCl (Ondansetron 4 Mg/2 Ml Sdv) 4 mg IVPUSH Q4H PRN PRN Reason: Nausea/Vomiting Pantoprazole Sodium (Pantoprazole 40 Mg Vial) 40 mg IVPUSH Q24H [facility] Last Admin: 05/01/20 11:39 Dose: 40 mg Documented by: Discontinued Medications Acetaminophen (Acetaminophen 500 Mg Tab) 1,000 mg PO ONETIME ONE Stop: 05/01/20 06:01 Last Admin: 05/01/20 08:00 Dose: 1,000 mg Documented by: Bupivacaine HCl (Bupivacaine 0.5% 50 Ml Mdv) Confirm Administered Dose 50 ml .ROUTE .STK-MED ONE Stop: 05/01/20 06:47 Last Admin: 05/01/20 08:04 Dose: 10 ml Documented by: Ropivacaine 37 ml/Dexamethasone 8 mg/Epinephrine HCl 0.4 mg/ Sodium Chloride 40.6 ml 0 ml NERVRT ASDIRECTED [facility] Last Admin: 05/01/20 07:40 Dose: 80 syringe Documented by: Dexamethasone (Dexamethasone 4 Mg/Ml Sdv) Confirm Administered Dose 4 mg .ROUTE .ST-MED ONE Stop: 05/01/20 07:14 Fentanyl (Fentanyl 250 Mcg/5 Ml Sdv) Confirm Administered Dose 250 mcg .ROUTE .[facility] ONE Stop: 05/01/20 07:13 Glycopyrrolate (Glycopyrrolate 0.2 Mg/Ml 5 Ml Mdv) Confirm Administered Dose 1 mg .ROUTE .[facility] ONE Stop: 05/01/20 07:14 Hydroxyzine HCl (Hydroxyzine Hcl 100 Mg/2 Ml Sdv) 100 mg IM ONETIME ONE Stop: 05/01/20 08:34 Last Admin: 05/01/20 08:38 Dose: 100 mg Documented by: Ketamine HCl 50 mg/ Sodium (Chloride) 50 mls @ 18 mls/hr IV ASDIRECTED [facility] Cefoxitin Sodium 2 gm/ Sodium (Chloride) 50 mls @ 100 mls/hr IV ONCALL ONE Stop: 05/01/20 07:59 Last Admin: 05/01/20 07:10 Dose: 100 mls/hr Documented by: Ketamine HCl (Ketamine 500 Mg/5 Ml Mdv) 30 mg IV ASDIRECTED [facility] Lidocaine/Epinephrine (Lidocaine 1% With Epinephrine 1:100,000 50 Ml Mdv) Confirm Administered Dose 50 ml .ROUTE .ST-MED ONE Stop: 05/01/20 06:47 Last Admin: 05/01/20 08:04 Dose: 10 ml Documented by: Neostigmine Methylsulfate (Neostigmine Methylsulfate 1 Mg/Ml 5 Ml Syringe) Confirm Administered Dose 5 mg .ROUTE .ST-MED ONE Stop: 05/01/20 07:14 Ondansetron HCl (Ondansetron 4 Mg/2 Ml Sdv) Confirm Administered Dose 4 mg .ROUTE .STK-MED ONE Stop: 05/01/20 07:14 Propofol (Propofol 200 Mg/20 Ml Sdv) Confirm Administered Dose 200 mg .ROUTE .STK-MED ONE Stop: 05/01/20 07:14 Rocuronium [place] (Rocuronium 50 Mg/5 Ml Vial) Confirm Administered Dose 50 mg .ROUTE .[facility] ONE Stop: 05/01/20 07:14 Succinylcholine Chloride (Succinylcholine 200 Mg/10 Ml Mdv) Confirm Administered Dose 200 mg .ROUTE .STK-MED ONE Stop: 05/01/20 07:14
--- NOTE | 2020-05-07 14:31 | OR ---
DATE OF PROCEDURE: 05/01/2020 SURGEON: Aroldo Ledesma MD PREOPERATIVE DIAGNOSES: Chronic cholecystitis and cholelithiasis. POSTOPERATIVE DIAGNOSES: 1. Chronic cholecystitis and cholelithiasis. 2. Incarcerated umbilical hernia. 3. Peritoneal nodule overlying the surface of common bile duct. OPERATIVE PROCEDURES: Diagnostic laparoscopy with: 1. Cholecystectomy (74996). 2. Repair of incarcerated umbilical hernia (50166). 3. Excision of peritoneal nodule overlying the surface of common bile duct (36942). ANESTHESIA: General. FLAME CUTTING MACHINE OPERATOR: Rhonda Verdugo PA-C INDICATIONS FOR PROCEDURE: A 24-year-old status post recent delivery of a baby who throughout her had problems with biliary colic and is known to have cholelithiasis. Plan is to proceed at this point with a laparoscopic or if necessary open cholecystectomy. Potential risks including bleeding, infection, injury to common bile duct, and possible migration of stones into the common bile duct were all reviewed, and the patient wishes to proceed. DETAILS OF PROCEDURE: The patient was taken to the operating room, placed in a supine position. After general endotracheal anesthesia was induced, the abdomen was prepped and draped. A transverse incision was made in the epigastrium, the peritoneal cavity entered under direct vision with an Optiview trocar, inflated to 15 mmHg with CO2. Laparoscope was reinserted. No underlying trocar insertion site injuries were seen. Following this, a 12 mm subumbilical trocar was placed. During the course of this placement, the patient was noted to have an incarcerated umbilical hernia containing some preperitoneal fat. The contents of this were displaced back into the peritoneal cavity during the trocar insertion. One additional 5 mm trocar was then placed across the right subcostal area. The gallbladder was retracted anterolaterally. The patient was noted to have a 3 mm whitish nodule overlying the common bile duct more or less adjacent to the duodenum. This was excised and sent for histologic evaluation. This measured 3 mm in diameter. The gallbladder was then retracted anterolaterally and dissection was began on the gallbladder neck, continued around the gallbladder neck and cystic duct junction. Once that area was well delineated as well as the adjacent cystic artery, both structures were clipped 3 times proximally, once distally, and divided. Gallbladder was then dissected off the gallbladder bed with Harmonic scalpel and delivered through the epigastric trocar site. The gallbladder was noted to contain multiple fairly small stones. Area of dissection was inspected. No bleeding or bile leaks were seen. A drain was felt not to be necessary. The camera port was then brought back up to the epigastric site, and the umbilical trocar was then removed and that area of herniation then closed with 0 Vicryl sutures placed with a transverse orientation using a laparoscopic suture passer. Once these were in place, the remaining trocars were removed. Fascia at the epigastric site was closed also with 0 Vicryl stitch, and the skin at each incision with 4-0 Vicryl skin stitch. Prior to closure, bilateral transverse abdominis plane blocks had been placed, and the incisions were anesthetized with 1% lidocaine mixed with Marcaine, and the patient taken to the recovery room in satisfactory condition. There were no evident complications. Physician ophthalmic surgical assistant, Rhonda Verdugo PA-C, played an essential role in assisting in this case, helping to position the patient, retract structures as needed, as well as suturing and cutting sutures when indicated. Her presence improved patient safety and decreased operative time. Aroldo Ledesma MD /[id number]
== END 2020-05-01 18:19 | disposition home or self-care (01) ==
LOC: JP.SDS 05:12 → JP.MS 08:30 → JP.SDS 18:19
PROVIDERS: ATTEND Surgery
DX: O99.63 Diseases of the digestive system complicating the puerperium (principal); K80.10 Calculus of gallbladder with chronic cholecystitis without obstruction; K42.0 Umbilical hernia with obstruction, without gangrene; K83.8 Other specified diseases of biliary tract; E66.01 Morbid (severe) obesity due to excess calories; Z68.29 Body mass index [BMI] 29.0-29.9, adult; Z01.812 Encounter for preprocedural laboratory examination; Z20.822 Contact with and (suspected) exposure to COVID-19; Z88.1 Allergy status to other antibiotic agents; Z91.018 Allergy to other foods; Z79.899 Other long term (current) drug therapy; Z98.890 Other specified postprocedural states
CPT/HCPCS: 36415; 80053; 81025; 85025; 88304; 88305; A9270-GY; C9113; J0171; J0330; J0694; J1100; J1170; J2405; J2704; J2710; J2795; J3010; J3410; J3490; J7121